=== PATIENT | male | born 1995 | race Caucasian/White ===

== ENCOUNTER 2017-12-14 17:16 | Emergency (ER) | payer OTHER, SELFPAY ==
[2017-12-14] MEDS ORDERED: Lidocaine 1% (PF) 30 ML VIAL ONE (17:38)
== END 2017-12-14 17:52 | disposition home or self-care (01) ==
LOC: ERS 17:16
DX: M70.22 Olecranon bursitis, left elbow (principal); F32.9 Major depressive disorder, single episode, unspecified; F43.10 Post-traumatic stress disorder, unspecified; F17.220 Nicotine dependence, chewing tobacco, uncomplicated
CPT/HCPCS: 99283; J2001

== ENCOUNTER 2022-05-04 16:19 | Emergency (ER) | payer OTHER, SELFPAY ==
[2022-05-04] MEDS ORDERED: Boostrix 0.5 ML (Tdap) VIAL (>/=7 yrs of age) ONE (17:42)
== END 2022-05-04 18:10 | disposition home or self-care (01) ==
LOC: ERS 16:19
DX: S61.411A Laceration without foreign body of right hand, initial encounter (principal); F17.210 Nicotine dependence, cigarettes, uncomplicated; W27.8XXA Contact with other nonpowered hand tool, initial encounter; Z23 Encounter for immunization
CPT/HCPCS: 12002; 90471; 90715